=== PATIENT | female | born 1940 | race Caucasian/White ===

== ENCOUNTER → 2016-10-18 | Outpatient (CLI) | payer MEDICARE, OTHER ==
[~2016-10-18] MED LIST: AMIO200T33 PO; APIX5TAB OR; CALC-337 OR; COLC1TAB3 PO; ERGO1CAP6 PO; ESZO1TAB12 PO; LEVO125T6 PO; SIMV-8 PO; TIOTCAP INH; VERA180T14 PO
[2016-10-18 09:20] LABS: Urine Bilirubin Negative (Negative); Urine Blood Negative /uL (Negative); Urine Color Yellow (Yellow); Urine Glucose Normal (Normal); Urine Ketone Negative (Negative); Urine Nitrite Negative (Negative); Urine Urobilinogen Normal (Negative)
[2016-10-18 14:20] LABS: Aspartate Aminotransferase 40 U/L (15-37); Cholesterol 133 mg/dL (< 200); HDL Cholesterol 62 mg/dL (40-59); LDL Cholesterol 60 mg/dL (< 100); Triglycerides 100 mg/dL (< 150)
== END | disposition home or self-care (01) ==
LOC: LAB 07:49
PROVIDERS: ATTEND Internal Medicine
DX: I48.91 Unspecified atrial fibrillation (principal); R73.01 Impaired fasting glucose
CPT/HCPCS: 36415; 80061; 81003; 82306; 83036; 84439; 84443; 84450; 84460; 84484; 86704; 86705; 86706; 86803; 87340

== ENCOUNTER → 2016-11-15 | Outpatient (CLI) | payer MEDICARE, OTHER | END | disposition home or self-care (01) | LOC: XYW 09:20 | PROVIDERS: ATTEND Internal Medicine Cardiovascular Disease | DX: I35.8 Other nonrheumatic aortic valve disorders (principal); I10 Essential (primary) hypertension | CPT/HCPCS: 93306 ==

== ENCOUNTER 2017-07-14 15:40 | Inpatient (IN) | payer MEDICARE, OTHER ==
[~2017-07-14] VITALS: Ht 167.6 cm; Wt 65.5 kg
[~2017-07-14 15:40] MED LIST changes: -AMIO200T33 PO; -CALC-337 OR; +CALC-337 PO; -COLC1TAB3 PO; -ESZO1TAB12 PO; -LEVO125T6 PO; +LEVO125T7 PO; +LISI10TA6 PO; -TIOTCAP INH
[2017-07-14 16:27] LABS: Basophils # (auto) 0.1 uL; Basophils % (auto) 1.2 % (0.0-2.0); Eosinophils # (auto) 0 uL; Eosinophils % (auto) 0.9 % (0.0-7.0); Hematocrit 45.6 % (36.0-46.0); Hemoglobin 15.2 g/dL (12.2-16.2); Lymphocytes # (auto) 0.7 uL; Lymphocytes % (auto) 15.8 % (10.0-50.0); Mean Corpuscular Hemoglobin 29.4 pg (28.0-32.0); Mean Corpuscular Hgb Conc. 33.3 g/dL (32.0-36.0); Mean Corpuscular Volume 88.4 fL (80.0-100.0); Monocytes # (auto) 0.5 uL; Neutrophils # (auto) 3.3 uL; Neutrophils % (auto) 71.1 % (37.0-80.0); Platelet Count (auto) 151 10^3/uL (140-450); Red Blood Cells 5.16 10^6/uL (4.0-5.20); Red Cell Distribution Width 14.7 % (11.8-14.3); White Blood Cell 4.6 10^3/uL (4.4-10.8)
[2017-07-14 16:46] LABS: Albumin 3.7 g/dL (3.4-5.0); Anion Gap 6 (5-15); Aspartate Aminotransferase 294 U/L (15-37); BUN/Creatinine Ratio 17.6; Blood Urea Nitrogen 19 mg/dL (7-18); Calcium 8.4 mg/dL (8.5-10.1); Carbon Dioxide 27 mmol/L (21-32); Chloride 108 mmol/L (98-107); GFR African American 63 mL/min; GFR Non-African American 52 mL/min; Glucose 90 mg/dL (74-106); Sodium 141 mmol/L (136-145)
[2017-07-14 16:50] LABS: Alanine Aminotransferase 192 U/L (13-56); Alkaline Phosphatase 176 U/L (45-117); Bilirubin, Total 0.5 mg/dL (0.2-1.0); Total Protein 6.9 g/dL (6.4-8.2)
[2017-07-15] MEDS ORDERED: ACETAMINOPHEN 325 MG TAB PO ONE ×2 (00:04→00:15)
[2017-07-15 01:32] LABS: Basophils # (auto) 0 uL; Basophils % (auto) 0.6 % (0.0-2.0); Eosinophils # (auto) 0 uL; Eosinophils % (auto) 0.3 % (0.0-7.0); Hematocrit 43.9 % (36.0-46.0); Hemoglobin 14.8 g/dL (12.2-16.2); Lymphocytes % (auto) 19.6 % (10.0-50.0); Mean Corpuscular Hgb Conc. 33.7 g/dL (32.0-36.0); Mean Corpuscular Volume 89.2 fL (80.0-100.0); Monocytes # (auto) 0.5 uL; Monocytes % (auto) 10.1 % (0.0-12.0); Neutrophils # (auto) 3.7 uL; Neutrophils % (auto) 69.4 % (37.0-80.0); Platelet Count (auto) 140 10^3/uL (140-450); Red Blood Cells 4.92 10^6/uL (4.0-5.20); Red Cell Distribution Width 14.6 % (11.8-14.3); White Blood Cell 5.3 10^3/uL (4.4-10.8)
[2017-07-15 01:51] LABS: Albumin 3.4 g/dL (3.4-5.0); Anion Gap 8 (5-15); Blood Urea Nitrogen 18 mg/dL (7-18); Carbon Dioxide 22 mmol/L (21-32); Chloride 109 mmol/L (98-107); Glucose 97 mg/dL (74-106); Potassium 3.6 mmol/L (3.5-5.1); Sodium 139 mmol/L (136-145)
[2017-07-15 01:53] LABS: Alanine Aminotransferase 147 U/L (13-56); Aspartate Aminotransferase 148 U/L (15-37); BUN/Creatinine Ratio 25.7; GFR African American 104 mL/min; GFR Non-African American 86 mL/min
[2017-07-15] MEDS ORDERED: ALBUTEROL SULF 2.5 MG/0.5ML(0.5%) NEB SOLN ONE (01:53)
[2017-07-15 01:58] LABS: Alkaline Phosphatase 166 U/L (45-117); Bilirubin, Total 0.5 mg/dL (0.2-1.0); Total Protein 6.8 g/dL (6.4-8.2)
[2017-07-15 02:00] LABS: INR 0.96 (0.9-1.15); Prothrombin Time 10.5 sec (9.37-12.3)
[2017-07-15] MEDS ORDERED: methylPREDNISolone SOD SUCC 125 MG/2 ML VL IV ONE (02:00)
[2017-07-15] MEDS ORDERED: ALBUTEROL SULF 2.5 MG/0.5ML(0.5%) NEB SOLN NEB ONE ×2 (02:00)
[2017-07-15] MEDS ORDERED: IPRATROPIUM BROM 0.5 MG/2.5ML INH SOL NEB ONE ×2 (02:00)
[2017-07-15] MEDS ORDERED: SODIUM CHLORIDE 0.9% 1,000 ML IV ONE (02:00)
[2017-07-15] MEDS ORDERED: LEVOFLOXACIN 750MG 150 ML IV ONE ×2 (02:00→02:01)
[2017-07-15] MEDS ORDERED: ACETAMINOPHEN 500 MG TAB PO PRN (04:30)
[2017-07-15] MEDS: IPRATROPIUM BROM 0.5 MG/2.5ML INH SOL NEB SCH ×4 (06:00→19:07)
[2017-07-15] MEDS: ALBUTEROL SULF 2.5 MG/0.5ML(0.5%) NEB SOLN NEB SCH ×4 (06:00→19:07)
[2017-07-15] MEDS: LEVOTHYROXINE SODIUM 112 MCG TAB PO SCH (08:19)
[2017-07-15 08:45] VITALS: BP 150/105
[2017-07-15] MEDS: APIXABAN 5 MG TAB PO SCH ×2 (10:11→21:30)
[2017-07-15] MEDS: LISINOPRIL 10 MG TAB PO SCH (10:11)
[2017-07-15 11:08] LABS: Urine Bacteria None Seen /hpf (None Seen); Urine WBC None Seen /hpf (0 - 5)
[2017-07-15 11:38] LABS: Urine Blood Negative /uL (Negative); Urine Specific Gravity 1.014 (1.001-1.035)
[2017-07-15 16:30] VITALS: BP 155/74
[2017-07-15] MEDS ORDERED: guaiFENesin-DM 100/10mg/5ml SYR PO PRN (18:15)
[2017-07-15] MEDS: THROAT LOZENGES(CEPASTAT) MT PRN (18:19)
[2017-07-15] MEDS: LEVOFLOXACIN 500MG 100 ML IV SCH (21:28)
[2017-07-15] MEDS: TEMAZEPAM 15 MG CAP PO PRN (21:30)
[2017-07-15] MEDS: MIRTAZAPINE 30 MG TAB PO SCH (21:30)
[2017-07-15 21:44] VITALS: BP 165/74
[2017-07-16] MEDS: methylPREDNISolone SOD SUCC 40 MG/ML VL IV SCH ×4 (00:19→17:35)
[2017-07-16 06:00] VITALS: BP 141/75
[2017-07-16] MEDS: ALBUTEROL SULF 2.5 MG/0.5ML(0.5%) NEB SOLN NEB SCH ×4 (06:02→19:44)
[2017-07-16] MEDS: IPRATROPIUM BROM 0.5 MG/2.5ML INH SOL NEB SCH ×4 (06:02→19:44)
[2017-07-16] MEDS: LEVOTHYROXINE SODIUM 112 MCG TAB PO SCH (06:07)
[2017-07-16 09:00] VITALS: BP 157/74
[2017-07-16] MEDS: APIXABAN 5 MG TAB PO SCH ×2 (09:22→21:48)
[2017-07-16] MEDS: LISINOPRIL 10 MG TAB PO SCH (09:22)
[2017-07-16 13:00] VITALS: BP 139/86
[2017-07-16 17:00] VITALS: BP 187/92
[2017-07-16] MEDS: cloNIDine HCL 0.1 MG TAB PO PRN (17:35)
[2017-07-16] MEDS: MIRTAZAPINE 30 MG TAB PO SCH (21:45)
[2017-07-16] MEDS: LEVOFLOXACIN 500MG 100 ML IV SCH (21:47)
[2017-07-16 22:00] VITALS: BP 131/71
[2017-07-17 05:00] VITALS: BP 150/77
[2017-07-17] MEDS: IPRATROPIUM BROM 0.5 MG/2.5ML INH SOL NEB SCH ×4 (06:05→18:41)
[2017-07-17] MEDS: ALBUTEROL SULF 2.5 MG/0.5ML(0.5%) NEB SOLN NEB SCH ×4 (06:05→18:40)
[2017-07-17 06:27] LABS: Basophils # (auto) 0 uL; Basophils % (auto) 0.1 % (0.0-2.0); Eosinophils # (auto) 0 uL; Hematocrit 39.3 % (36.0-46.0); Hemoglobin 13.2 g/dL (12.2-16.2); Lymphocytes # (auto) 1.3 uL; Lymphocytes % (auto) 17.6 % (10.0-50.0); Mean Corpuscular Hemoglobin 30.3 pg (28.0-32.0); Mean Corpuscular Hgb Conc. 33.7 g/dL (32.0-36.0); Mean Corpuscular Volume 89.9 fL (80.0-100.0); Monocytes # (auto) 0.5 uL; Monocytes % (auto) 6.7 % (0.0-12.0); Neutrophils # (auto) 5.6 uL; Neutrophils % (auto) 75.6 % (37.0-80.0); Nucleated Red Blood Cells % 0.1 %; Platelet Count (auto) 169 10^3/uL (140-450); Red Blood Cells 4.37 10^6/uL (4.0-5.20); Red Cell Distribution Width 14.3 % (11.8-14.3); White Blood Cell 7.4 10^3/uL (4.4-10.8)
[2017-07-17 06:45] LABS: Albumin 3.2 g/dL (3.4-5.0); Calcium 8.3 mg/dL (8.5-10.1); Potassium 3.7 mmol/L (3.5-5.1)
[2017-07-17 06:50] LABS: Bilirubin, Total 0.3 mg/dL (0.2-1.0); Total Protein 6.2 g/dL (6.4-8.2)
[2017-07-17] MEDS: LEVOTHYROXINE SODIUM 112 MCG TAB PO SCH (06:57)
[2017-07-17 09:00] VITALS: BP 167/76
[2017-07-17] MEDS: predniSONE 20 MG TAB PO SCH (09:54)
[2017-07-17] MEDS: APIXABAN 5 MG TAB PO SCH ×2 (09:55→22:08)
[2017-07-17] MEDS: LISINOPRIL 10 MG TAB PO SCH (09:55)
[2017-07-17 13:30] VITALS: BP 154/82
[2017-07-17] MEDS: guaiFENesin-DM 100/10mg/5ml SYR PO SCH ×3 (16:00→22:08)
[2017-07-17 17:28] VITALS: BP 152/86
[2017-07-17] MEDS: BUDESONIDE (INHALATION) 0.5 MG/2 ML NEB NEB SCH (18:41)
[2017-07-17 21:53] VITALS: BP 162/82
[2017-07-17] MEDS: LEVOFLOXACIN 500MG 100 ML IV SCH (22:08)
[2017-07-17] MEDS: MIRTAZAPINE 30 MG TAB PO SCH (22:08)
[2017-07-17] MEDS: cloNIDine HCL 0.1 MG TAB PO PRN (22:09)
[2017-07-17] MEDS: TEMAZEPAM 15 MG CAP PO PRN (22:34)
[2017-07-18] VITALS (7 sets, daily range): BP systolic 128–200; BP diastolic 70–118
[2017-07-18] MEDS: guaiFENesin-DM 100/10mg/5ml SYR PO SCH ×4 (06:04→21:40)
[2017-07-18] MEDS: LEVOTHYROXINE SODIUM 112 MCG TAB PO SCH (06:04)
[2017-07-18] MEDS: ALBUTEROL SULF 2.5 MG/0.5ML(0.5%) NEB SOLN NEB SCH ×4 (06:29→19:30)
[2017-07-18] MEDS: IPRATROPIUM BROM 0.5 MG/2.5ML INH SOL NEB SCH ×4 (06:29→19:29)
[2017-07-18] MEDS: BUDESONIDE (INHALATION) 0.5 MG/2 ML NEB NEB SCH ×2 (10:08→19:30)
[2017-07-18] MEDS: predniSONE 20 MG TAB PO SCH (12:01)
[2017-07-18] MEDS: APIXABAN 5 MG TAB PO SCH ×2 (12:01→21:40)
[2017-07-18] MEDS: LISINOPRIL 10 MG TAB PO SCH (12:02)
[2017-07-18] MEDS ORDERED: BUDESONIDE (INHALATION) 0.5 MG/2 ML NEB NEB SCH (15:30)
[2017-07-18] MEDS: LEVOFLOXACIN 500MG 100 ML IV SCH (21:40)
[2017-07-18] MEDS: THROAT LOZENGES(CEPASTAT) MT PRN (21:40)
[2017-07-18] MEDS: MIRTAZAPINE 30 MG TAB PO SCH (21:40)
[2017-07-18] MEDS: TEMAZEPAM 15 MG CAP PO PRN (21:41)
[2017-07-18] MEDS: cloNIDine HCL 0.1 MG TAB PO PRN (21:41)
[2017-07-19 05:00] VITALS: BP 145/105
[2017-07-19] MEDS: guaiFENesin-DM 100/10mg/5ml SYR PO SCH ×4 (06:15→21:36)
[2017-07-19] MEDS: LEVOTHYROXINE SODIUM 112 MCG TAB PO SCH (06:15)
[2017-07-19] MEDS: ALBUTEROL SULF 2.5 MG/0.5ML(0.5%) NEB SOLN NEB SCH ×4 (06:22→20:01)
[2017-07-19] MEDS: IPRATROPIUM BROM 0.5 MG/2.5ML INH SOL NEB SCH ×4 (06:22→20:01)
[2017-07-19 09:00] VITALS: BP 135/73
[2017-07-19] MEDS: LISINOPRIL 10 MG TAB PO SCH (09:31)
[2017-07-19] MEDS: predniSONE 20 MG TAB PO SCH (09:31)
[2017-07-19] MEDS: APIXABAN 5 MG TAB PO SCH ×2 (09:32→21:35)
[2017-07-19] MEDS: BUDESONIDE (INHALATION) 0.5 MG/2 ML NEB NEB SCH ×2 (10:48→20:14)
[2017-07-19 13:00] VITALS: BP 159/76
[2017-07-19 16:28] VITALS: BP 136/79
[2017-07-19 21:24] VITALS: BP 145/82
[2017-07-19] MEDS ORDERED: ALBUTEROL SULF 2.5 MG/0.5ML(0.5%) NEB SOLN NEB PRN (21:30)
[2017-07-19] MEDS: LEVOFLOXACIN 500 MG TAB PO SCH (21:35)
[2017-07-19] MEDS: MIRTAZAPINE 30 MG TAB PO SCH (21:35)
[2017-07-19] MEDS: TEMAZEPAM 15 MG CAP PO PRN (21:42)
[2017-07-19] MEDS: ACETYLCYSTEINE 20%(200MG/ML) SOL 4ML NEB SCH (23:15)
[2017-07-20 05:10] VITALS: BP 154/78
[2017-07-20] MEDS: guaiFENesin-DM 100/10mg/5ml SYR PO SCH ×4 (06:19→21:39)
[2017-07-20] MEDS: LEVOTHYROXINE SODIUM 112 MCG TAB PO SCH (06:25)
[2017-07-20] MEDS: ALBUTEROL SULF 2.5 MG/0.5ML(0.5%) NEB SOLN NEB SCH ×4 (06:42→19:05)
[2017-07-20] MEDS: BUDESONIDE (INHALATION) 0.5 MG/2 ML NEB NEB SCH ×2 (06:42→19:06)
[2017-07-20] MEDS: ACETYLCYSTEINE 20%(200MG/ML) SOL 4ML NEB SCH ×3 (06:42→19:06)
[2017-07-20] MEDS: IPRATROPIUM BROM 0.5 MG/2.5ML INH SOL NEB SCH ×4 (06:42→19:05)
[2017-07-20 09:00] VITALS: BP 139/83
[2017-07-20] MEDS: LISINOPRIL 10 MG TAB PO SCH (09:49)
[2017-07-20] MEDS: APIXABAN 5 MG TAB PO SCH ×2 (09:50→21:39)
[2017-07-20] MEDS: predniSONE 20 MG TAB PO SCH (09:50)
[2017-07-20 13:00] VITALS: BP 155/82
[2017-07-20 17:00] VITALS: BP 159/73
[2017-07-20] MEDS ORDERED: ALBUTEROL SULF 2.5 MG/0.5ML(0.5%) NEB SOLN ONE (17:44)
[2017-07-20] MEDS ORDERED: IPRATROPIUM BROM 0.5 MG/2.5ML INH SOL ONE (17:44)
[2017-07-20] MEDS ORDERED: BUDESONIDE (INHALATION) 0.5 MG/2 ML NEB ONE (17:45)
[2017-07-20] MEDS: MIRTAZAPINE 30 MG TAB PO SCH (21:39)
[2017-07-20] MEDS: TEMAZEPAM 15 MG CAP PO PRN (21:39)
[2017-07-20] MEDS: LEVOFLOXACIN 500 MG TAB PO SCH (21:39)
[2017-07-20 22:00] VITALS: BP 180/98
[2017-07-20] MEDS: cloNIDine HCL 0.1 MG TAB PO PRN (22:22)
[2017-07-21 05:32] VITALS: BP 133/59
[2017-07-21] MEDS: LEVOTHYROXINE SODIUM 112 MCG TAB PO SCH (06:24)
[2017-07-21] MEDS: guaiFENesin-DM 100/10mg/5ml SYR PO SCH (06:24)
[2017-07-21] MEDS: IPRATROPIUM BROM 0.5 MG/2.5ML INH SOL NEB SCH ×4 (06:27→19:20)
[2017-07-21] MEDS: ALBUTEROL SULF 2.5 MG/0.5ML(0.5%) NEB SOLN NEB SCH ×4 (06:27→19:20)
[2017-07-21] MEDS: ACETYLCYSTEINE 20%(200MG/ML) SOL 4ML NEB SCH ×3 (06:27→23:01)
[2017-07-21 09:00] VITALS: BP 139/84
[2017-07-21 09:26] VITALS: BP 180/98
[2017-07-21] MEDS: BUDESONIDE (INHALATION) 0.5 MG/2 ML NEB NEB SCH ×2 (09:45→23:01)
[2017-07-21] MEDS: APIXABAN 5 MG TAB PO SCH ×2 (11:21→22:05)
[2017-07-21] MEDS: predniSONE 20 MG TAB PO SCH (11:22)
[2017-07-21] MEDS: LISINOPRIL 10 MG TAB PO SCH (11:23)
[2017-07-21 13:00] VITALS: BP 160/78
[2017-07-21] MEDS ORDERED: guaiFENesin 200 MG/10 ML UD GT PRN (15:15)
[2017-07-21 17:00] VITALS: BP 132/80
[2017-07-21 22:00] VITALS: BP 156/77
[2017-07-21] MEDS: LEVOFLOXACIN 500 MG TAB PO SCH (22:04)
[2017-07-21] MEDS: MIRTAZAPINE 30 MG TAB PO SCH (22:05)
[2017-07-21] MEDS: TEMAZEPAM 15 MG CAP PO PRN (22:23)
[2017-07-22 05:00] VITALS: BP 142/84
[2017-07-22] MEDS: LEVOTHYROXINE SODIUM 112 MCG TAB PO SCH (06:55)
[2017-07-22] MEDS: IPRATROPIUM BROM 0.5 MG/2.5ML INH SOL NEB SCH ×4 (07:05→19:00)
[2017-07-22] MEDS: ALBUTEROL SULF 2.5 MG/0.5ML(0.5%) NEB SOLN NEB SCH ×4 (07:05→19:00)
[2017-07-22] MEDS: ACETYLCYSTEINE 20%(200MG/ML) SOL 4ML NEB SCH ×3 (07:06→18:34)
[2017-07-22 09:00] VITALS: BP 155/75
[2017-07-22] MEDS: LISINOPRIL 10 MG TAB PO SCH (10:02)
[2017-07-22] MEDS: LEVOFLOXACIN 500 MG TAB PO SCH (10:02)
[2017-07-22] MEDS: predniSONE 20 MG TAB PO SCH (10:02)
[2017-07-22] MEDS: APIXABAN 5 MG TAB PO SCH ×2 (10:02→22:01)
[2017-07-22] MEDS: BUDESONIDE (INHALATION) 0.5 MG/2 ML NEB NEB SCH ×2 (10:25→19:00)
[2017-07-22 13:00] VITALS: BP 144/87
[2017-07-22] MEDS ORDERED: LORazepam 0.5 MG TAB PO PRN (14:00)
[2017-07-22 16:51] VITALS: BP 146/81
[2017-07-22] MEDS: TEMAZEPAM 15 MG CAP PO PRN (22:00)
[2017-07-22] MEDS: MIRTAZAPINE 30 MG TAB PO SCH (22:01)
[2017-07-23] VITALS (7 sets, daily range): BP systolic 140–155; BP diastolic 77–88
[2017-07-23] MEDS: LEVOTHYROXINE SODIUM 112 MCG TAB PO SCH (06:35)
[2017-07-23] MEDS: predniSONE 20 MG TAB PO SCH (10:30)
[2017-07-23] MEDS: LISINOPRIL 10 MG TAB PO SCH (10:30)
[2017-07-23] MEDS: APIXABAN 5 MG TAB PO SCH ×2 (10:31→22:08)
[2017-07-23] MEDS: ALBUTEROL SULF 2.5 MG/0.5ML(0.5%) NEB SOLN NEB SCH ×3 (14:00→19:20)
[2017-07-23] MEDS: ACETYLCYSTEINE 20%(200MG/ML) SOL 4ML NEB SCH ×3 (14:00→22:00)
[2017-07-23] MEDS: IPRATROPIUM BROM 0.5 MG/2.5ML INH SOL NEB SCH ×3 (14:00→19:20)
[2017-07-23] MEDS: BUDESONIDE (INHALATION) 0.5 MG/2 ML NEB NEB SCH ×2 (19:20→22:00)
[2017-07-23] MEDS: MIRTAZAPINE 30 MG TAB PO SCH (22:08)
[2017-07-23] MEDS: LEVOFLOXACIN 500 MG TAB PO SCH (22:09)
[2017-07-23] MEDS: TEMAZEPAM 15 MG CAP PO PRN (22:34)
[2017-07-24 05:25] VITALS: BP 150/84
[2017-07-24] MEDS: ALBUTEROL SULF 2.5 MG/0.5ML(0.5%) NEB SOLN NEB SCH ×4 (05:55→14:35)
[2017-07-24] MEDS: IPRATROPIUM BROM 0.5 MG/2.5ML INH SOL NEB SCH ×4 (05:55→14:35)
[2017-07-24] MEDS: ACETYLCYSTEINE 20%(200MG/ML) SOL 4ML NEB SCH ×3 (05:55→10:08)
[2017-07-24] MEDS: LEVOTHYROXINE SODIUM 112 MCG TAB PO SCH (06:40)
[2017-07-24 08:00] VITALS: BP 138/85
[2017-07-24 09:11] VITALS: BP 138/85
[2017-07-24] MEDS: predniSONE 20 MG TAB PO SCH (09:23)
[2017-07-24] MEDS: LISINOPRIL 10 MG TAB PO SCH (09:23)
[2017-07-24] MEDS: APIXABAN 5 MG TAB PO SCH (09:23)
[2017-07-24] MEDS: BUDESONIDE (INHALATION) 0.5 MG/2 ML NEB NEB SCH (10:08)
[2017-07-24 12:42] VITALS: BP 147/81
[2017-07-24 13:25] VITALS: BP 147/81
[2017-07-24 14:59] VITALS: BP 147/81
[2017-07-24] MEDS ORDERED: Nutren Pulmonary 250ml Bottle PO SCH (18:00)
== END 2017-07-24 15:55 | disposition home or self-care (01) | DRG 189 ==
LOC: ER 15:44 → TELE 15:45 → TELE-WESTW 07-15 16:12 → WEST WING 07-19 20:37
PROVIDERS: ADMIT Nurse Practitioner Family; ATTEND Internal Medicine Pulmonary Disease
DX: J96.00 Acute respiratory failure, unspecified whether with hypoxia or hypercapnia (principal); E44.1 Mild protein-calorie malnutrition; I11.0 Hypertensive heart disease with heart failure; I48.91 Unspecified atrial fibrillation; E86.0 Dehydration; E89.0 Postprocedural hypothyroidism; F17.210 Nicotine dependence, cigarettes, uncomplicated; J44.0 Chronic obstructive pulmonary disease with (acute) lower respiratory infection; J44.1 Chronic obstructive pulmonary disease with (acute) exacerbation; F41.9 Anxiety disorder, unspecified; I10 Essential (primary) hypertension; J20.9 Acute bronchitis, unspecified; Z79.01 Long term (current) use of anticoagulants; Z79.899 Other long term (current) drug therapy; Z82.49 Family history of ischemic heart disease and other diseases of the circulatory system; Z83.3 Family history of diabetes mellitus; Z90.710 Acquired absence of both cervix and uterus; K72.90 Hepatic failure, unspecified without coma; Z80.0 Family history of malignant neoplasm of digestive organs; Z82.5 Family history of asthma and other chronic lower respiratory diseases; Z84.89 Family history of other specified conditions; Z68.23 Body mass index [BMI] 23.0-23.9, adult
CPT/HCPCS: 36415; 36600; 71045; 71046; 71250; 80053; 81001; 82805; 83605; 84443; 84484; 85025; 85610; 87040; 87400; 93005; 94640; J1956

== ENCOUNTER → 2017-10-24 | Outpatient (CLI) | payer MEDICARE, OTHER ==
[~2017-10-24] MED LIST changes: +ALBUTEROL SULF 2.5 MG/0.5ML(0.5%) NEB SOLN ONE; -VERA180T14 PO
== END | disposition home or self-care (01) ==
LOC: RT 08:15
PROVIDERS: ATTEND Internal Medicine Pulmonary Disease
DX: J44.9 Chronic obstructive pulmonary disease, unspecified (principal); I10 Essential (primary) hypertension; Z79.01 Long term (current) use of anticoagulants; Z79.899 Other long term (current) drug therapy; Z87.891 Personal history of nicotine dependence
CPT/HCPCS: 94060; 94640